=== PATIENT | female | born 1960 | race Two or more races ===

== ENCOUNTER 2022-08-28 14:07 | Inpatient (IN) | payer MEDICAID, OTHER ==
[~2022-08-28] VITALS: Ht 149.9 cm; Wt 38.4 kg
[2022-08-28 18:33] LABS: Urine Amorphous Crystal FEW /hpf (None Seen); Urine Bacteria FEW /hpf (None Seen); Urine Blood Negative /uL (Negative); Urine Mucus FEW (None Seen); Urine Specific Gravity 1.021 (1.001-1.035); Urine WBC 15 /hpf (0 - 5)
[2022-08-28] MEDS ORDERED: IOHEXOL 350 MG/ML 100ML IJ ONE (20:14)
[2022-08-29 00:43] LABS: Basophils # (auto) 0.1 10 ^3/uL (0-0.2); Basophils % (auto) 0.7 % (0.0-2.0); Eosinophils # (auto) 0.2 10 ^3/uL (0-0.8); Monocytes # (auto) 0.7 10 ^3/uL (0-1.3); Neutrophils # (auto) 7.7 10 ^3/uL (1.6-8.6); Nucleated Red Blood Cells % 0.1 %; Red Cell Distribution Width 17.5 % (11.8-14.3)
[2022-08-29 00:45] LABS: Eosinophils % (auto) 1.8 % (0.0-7.0); Hematocrit 40.7 % (36.0-46.0); Hemoglobin 12.7 g/dL (12.2-16.2); Lymphocytes # (auto) 1.3 10 ^3/uL (0.4-5.4); Lymphocytes % (auto) 13.1 % (10.0-50.0); Mean Corpuscular Hemoglobin 25.3 pg (28.0-32.0); Mean Corpuscular Hgb Conc. 31.2 g/dL (32.0-36.0); Mean Corpuscular Volume 81.2 fL (80.0-100.0); Monocytes % (auto) 6.8 % (0.0-12.0); Neutrophils % (auto) 77.6 % (37.0-80.0); Red Blood Cells 5.01 10^6/uL (4.0-5.20); White Blood Cell 9.9 10^3/uL (4.4-10.8)
[2022-08-29 01:00] LABS: Albumin 3.5 g/dL (3.4-5.0); BUN/Creatinine Ratio 21.2; Calcium 8.7 mg/dL (8.5-10.1); Potassium 4.8 mmol/L (3.5-5.1)
[2022-08-29 01:03] LABS: Bilirubin, Total 0.3 mg/dL (0.2-1.0); Total Protein 8.5 g/dL (6.4-8.2)
[2022-08-29] MEDS ORDERED: AZITHROMYCIN 250 MG TAB PO ONE (04:00)
[2022-08-29] MEDS ORDERED: cefTRIAXone 1GM/50ML D5W 50 ML IV ONE (04:00)
[2022-08-29] MEDS ORDERED: ONDANSETRON HCL 4 MG/2 ML VIAL IV PRN (05:00)
[2022-08-29] MEDS ORDERED: ACETAMINOPHEN 325 MG TAB PO PRN (05:00)
[2022-08-29] MEDS ORDERED: ALBUTEROL SULF 2.5 MG/0.5ML(0.5%) NEB SOLN NEB PRN (05:45)
[2022-08-29 05:55] VITALS: BP 113/70
[2022-08-29] MEDS: PANTOPRAZOLE 40 MG TAB PO SCH (09:47)
[2022-08-29 16:24] VITALS: BP 122/72
[2022-08-29 16:30] VITALS: BP 112/75
[2022-08-29 22:00] VITALS: BP 111/69
[2022-08-30] VITALS (7 sets, daily range): BP systolic 99–118; BP diastolic 65–75
[2022-08-30] MEDS ORDERED: cefTRIAXone 1GM/50ML D5W 50 ML IV SCH (04:00)
[2022-08-30] MEDS ORDERED: AZITHROMYCIN 500MG/ 250ML 250 ML IV SCH (05:00)
[2022-08-30 06:25] LABS: Basophils # (auto) 0.1 10 ^3/uL (0-0.2); Eosinophils # (auto) 0.4 10 ^3/uL (0-0.8); Lymphocytes # (auto) 1.9 10 ^3/uL (0.4-5.4); Nucleated Red Blood Cells % 0.1 %
[2022-08-30 06:29] LABS: Basophils % (auto) 0.8 % (0.0-2.0); Eosinophils % (auto) 5.8 % (0.0-7.0); Hematocrit 35.8 % (36.0-46.0); Hemoglobin 11.1 g/dL (12.2-16.2); Lymphocytes % (auto) 27.4 % (10.0-50.0); Mean Corpuscular Volume 80.7 fL (80.0-100.0); Monocytes # (auto) 0.7 10 ^3/uL (0-1.3); Monocytes % (auto) 9.7 % (0.0-12.0); Neutrophils # (auto) 3.9 10 ^3/uL (1.6-8.6); Neutrophils % (auto) 56.3 % (37.0-80.0); Red Blood Cells 4.44 10^6/uL (4.0-5.20); Red Cell Distribution Width 16.8 % (11.8-14.3)
[2022-08-30 06:43] LABS: BUN/Creatinine Ratio 19.8; Calcium 8.3 mg/dL (8.5-10.1); Phosphorus 3.9 mg/dL (2.5-4.90); Potassium 4.1 mmol/L (3.5-5.1)
[2022-08-30 08:50] LABS: INR 1.02 (0.9-1.15); Partial Thromboplastin Time 28.5 sec (24.6-33.4)
[2022-08-30] MEDS: PANTOPRAZOLE 40 MG TAB PO SCH (09:55)
[2022-08-30] MEDS: ENOXAPARIN SOD 30 MG/0.3 ML SYRINGE SC SCH (10:00)
[2022-08-31] VITALS (7 sets, daily range): BP systolic 102–117; BP diastolic 62–79
[2022-08-31] MEDS: ENOXAPARIN SOD 30 MG/0.3 ML SYRINGE SC SCH (10:00)
[2022-08-31] MEDS: PANTOPRAZOLE 40 MG TAB PO SCH (10:06)
[2022-08-31] MEDS ORDERED: FUROSEMIDE 40 MG/4 ML VIAL ONE (10:14)
[2022-09-01 05:00] VITALS: BP 101/70
[2022-09-01 08:20] VITALS: BP 110/93
[2022-09-01 08:51] VITALS: BP 110/93
[2022-09-01 09:25] VITALS: BP 110/93
[2022-09-01] MEDS: PANTOPRAZOLE 40 MG TAB PO SCH (09:31)
[2022-09-01] MEDS: ENOXAPARIN SOD 30 MG/0.3 ML SYRINGE SC SCH (09:31)
[2022-09-01 14:19] VITALS: BP 108/69
== END 2022-09-01 15:30 | disposition left against medical advice (07) | DRG 139 ==
LOC: ER 14:07 → OVERFLOW 08-29 04:52 → WEST WING 08-29 14:54 → TELE-WESTW 08-29 18:23
PROVIDERS: ADMIT Nurse Practitioner; ATTEND Internal Medicine
DX: J15.9 Unspecified bacterial pneumonia (principal); N13.6 Pyonephrosis; J84.10 Pulmonary fibrosis, unspecified; N26.1 Atrophy of kidney (terminal); Z20.822 Contact with and (suspected) exposure to COVID-19; N18.9 Chronic kidney disease, unspecified; Z85.51 Personal history of malignant neoplasm of bladder; Z90.6 Acquired absence of other parts of urinary tract; Z93.6 Other artificial openings of urinary tract status
CPT/HCPCS: 36415; 71045; 78707; 80048; 80053; 81001; 83605; 84100; 84132; 84484; 85025; 85610; 85730; 87426; 96365; G0378; J0696